=== PATIENT | female | born 1950 | race American Indian/Alaskan Native ===

== ENCOUNTER 2020-11-30 13:13 | Outpatient (CLI) | payer MEDICARE ==
[2020-11-30] MEDS ORDERED: LIDOCAINE (4%) 40 MG/ML TOPICAL SOLN 50 ML BOTTLE TP ONE (15:08)
== END 2020-11-30 13:14 | disposition home or self-care (01) ==
LOC: WOUND 13:13
PROVIDERS: ATTEND Surgery
DX: I87.311 Chronic venous hypertension (idiopathic) with ulcer of right lower extremity (principal); L97.812 Non-pressure chronic ulcer of other part of right lower leg with fat layer exposed; I10 Essential (primary) hypertension; K21.9 Gastro-esophageal reflux disease without esophagitis; M19.90 Unspecified osteoarthritis, unspecified site; M47.9 Spondylosis, unspecified; R26.9 Unspecified abnormalities of gait and mobility; F41.9 Anxiety disorder, unspecified; Z90.49 Acquired absence of other specified parts of digestive tract; Z86.718 Personal history of other venous thrombosis and embolism
CPT/HCPCS: 11042; 11045; G0463; 99205

== ENCOUNTER 2020-12-14 13:38 | Outpatient (CLI) | payer MEDICARE | END 2020-12-14 13:39 | disposition home or self-care (01) | LOC: WOUND 13:38 ==

== ENCOUNTER → 2020-12-21 | Outpatient (CLI) | payer MEDICARE | END | disposition home or self-care (01) | LOC: WOUND 12:41 | PROVIDERS: ATTEND Surgery | DX: I87.311 Chronic venous hypertension (idiopathic) with ulcer of right lower extremity (principal); L97.812 Non-pressure chronic ulcer of other part of right lower leg with fat layer exposed; I10 Essential (primary) hypertension; K21.9 Gastro-esophageal reflux disease without esophagitis; M19.90 Unspecified osteoarthritis, unspecified site; M47.9 Spondylosis, unspecified; R26.9 Unspecified abnormalities of gait and mobility; F41.9 Anxiety disorder, unspecified; Z90.49 Acquired absence of other specified parts of digestive tract; Z86.718 Personal history of other venous thrombosis and embolism ==

== ENCOUNTER 2020-12-26 09:54 | Outpatient (CLI) | payer MEDICARE ==
--- NOTE | 2020-12-26 17:34 | Vascular Lab Report ---
DUPLEX DOPPLER LOWER EXTREMITY VEINS, RIGHT INDICATION: CHRONIC VENOUS HYPERTENSION W/ RIGHT LOWER EXTREMITY-I87.311. TECHNIQUE: Duplex doppler imaging was performed through the veins of the right lower extremity using venous comp ression and other maneuvers. COMPARISON: None available. 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 Superficial Femoral vein: Negative. Popliteal vein: Negative. Calf veins: Negative. Additional findings: Mild subcutaneous edema. 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 Prominent subcutaneous edema of the right lower extremity. Signer Name: Alfredo Gutierrez MD Signed: 12/26/2020 5:30 PM Workstation Name: [id number]
== END 2020-12-26 09:55 | disposition home or self-care (01) ==
LOC: VAS 09:54
PROVIDERS: ATTEND Surgery
DX: I87.311 Chronic venous hypertension (idiopathic) with ulcer of right lower extremity (principal); M79.89 Other specified soft tissue disorders

== ENCOUNTER 2020-12-28 13:27 | Outpatient (CLI) | payer MEDICARE ==
[2020-12-28] MEDS ORDERED: LIDOCAINE (4%) 40 MG/ML TOPICAL SOLN 50 ML BOTTLE TP ONE (14:00)
== END 2020-12-28 13:28 | disposition home or self-care (01) ==
LOC: WOUND 13:27
PROVIDERS: ATTEND Surgery
DX: I87.311 Chronic venous hypertension (idiopathic) with ulcer of right lower extremity (principal); L97.812 Non-pressure chronic ulcer of other part of right lower leg with fat layer exposed; I10 Essential (primary) hypertension; K21.9 Gastro-esophageal reflux disease without esophagitis; M19.90 Unspecified osteoarthritis, unspecified site; M47.9 Spondylosis, unspecified; R26.9 Unspecified abnormalities of gait and mobility; F41.9 Anxiety disorder, unspecified; Z90.49 Acquired absence of other specified parts of digestive tract; Z86.718 Personal history of other venous thrombosis and embolism

== ENCOUNTER 2021-01-04 13:22 | Outpatient (CLI) | payer MEDICARE ==
[2021-01-04] MEDS ORDERED: LIDOCAINE (4%) 40 MG/ML TOPICAL SOLN 50 ML BOTTLE TP ONE (13:25)
[2021-01-04] MEDS ORDERED: SODIUM HYPOCHLORITE, DAKIN'S FULL STRENGTH (0.5%) 473 ML TOPICAL SOLN TP ONE (14:14)
== END 2021-01-04 13:23 | disposition home or self-care (01) ==
LOC: WOUND 13:22
PROVIDERS: ATTEND Surgery
DX: I87.311 Chronic venous hypertension (idiopathic) with ulcer of right lower extremity (principal); L97.812 Non-pressure chronic ulcer of other part of right lower leg with fat layer exposed; I10 Essential (primary) hypertension; K21.9 Gastro-esophageal reflux disease without esophagitis; M19.90 Unspecified osteoarthritis, unspecified site; M47.9 Spondylosis, unspecified; R26.9 Unspecified abnormalities of gait and mobility; F41.9 Anxiety disorder, unspecified; Z90.49 Acquired absence of other specified parts of digestive tract; Z86.718 Personal history of other venous thrombosis and embolism

== ENCOUNTER 2021-01-11 13:30 | Outpatient (CLI) | payer MEDICARE ==
[2021-01-11] MEDS ORDERED: LIDOCAINE (4%) 40 MG/ML TOPICAL SOLN 50 ML BOTTLE TP ONE (13:37)
== END 2021-01-11 13:31 | disposition home or self-care (01) ==
LOC: WOUND 13:30
PROVIDERS: ATTEND Surgery
DX: I87.311 Chronic venous hypertension (idiopathic) with ulcer of right lower extremity (principal); L97.812 Non-pressure chronic ulcer of other part of right lower leg with fat layer exposed; K21.9 Gastro-esophageal reflux disease without esophagitis; M19.90 Unspecified osteoarthritis, unspecified site; M47.9 Spondylosis, unspecified; R26.9 Unspecified abnormalities of gait and mobility; F41.9 Anxiety disorder, unspecified; Z90.49 Acquired absence of other specified parts of digestive tract; Z86.718 Personal history of other venous thrombosis and embolism

== ENCOUNTER 2021-01-18 13:41 | Outpatient (CLI) | payer MEDICARE | END 2021-01-18 13:42 | disposition home or self-care (01) | LOC: WOUND 13:41 | PROVIDERS: ATTEND Surgery | DX: I87.311 Chronic venous hypertension (idiopathic) with ulcer of right lower extremity (principal); L97.812 Non-pressure chronic ulcer of other part of right lower leg with fat layer exposed; K21.9 Gastro-esophageal reflux disease without esophagitis; M19.90 Unspecified osteoarthritis, unspecified site; M47.9 Spondylosis, unspecified; R26.9 Unspecified abnormalities of gait and mobility; F41.9 Anxiety disorder, unspecified; Z90.49 Acquired absence of other specified parts of digestive tract; Z86.718 Personal history of other venous thrombosis and embolism ==

== ENCOUNTER 2021-01-25 14:08 | Outpatient (CLI) | payer MEDICARE ==
[2021-01-25] MEDS ORDERED: LIDOCAINE (4%) 40 MG/ML TOPICAL SOLN 50 ML BOTTLE TP ONE (14:47)
[2021-01-25] MEDS ORDERED: SODIUM HYPOCHLORITE, DAKIN'S FULL STRENGTH (0.5%) 473 ML TOPICAL SOLN TP ONE (14:47)
== END 2021-01-25 14:09 | disposition home or self-care (01) ==
LOC: WOUND 14:08
PROVIDERS: ATTEND Surgery
DX: I87.311 Chronic venous hypertension (idiopathic) with ulcer of right lower extremity (principal); L97.812 Non-pressure chronic ulcer of other part of right lower leg with fat layer exposed; K21.9 Gastro-esophageal reflux disease without esophagitis; M19.90 Unspecified osteoarthritis, unspecified site; M47.9 Spondylosis, unspecified; R26.9 Unspecified abnormalities of gait and mobility; F41.9 Anxiety disorder, unspecified; Z90.49 Acquired absence of other specified parts of digestive tract; Z86.718 Personal history of other venous thrombosis and embolism

== ENCOUNTER 2021-02-01 13:46 | Outpatient (CLI) | payer MEDICARE ==
[2021-02-01] MEDS ORDERED: LIDOCAINE (4%) 40 MG/ML TOPICAL SOLN 50 ML BOTTLE TP ONE (14:46)
== END 2021-02-01 13:47 | disposition home or self-care (01) ==
LOC: WOUND 13:46
PROVIDERS: ATTEND Surgery
DX: I87.311 Chronic venous hypertension (idiopathic) with ulcer of right lower extremity (principal); L97.812 Non-pressure chronic ulcer of other part of right lower leg with fat layer exposed; K21.9 Gastro-esophageal reflux disease without esophagitis; M19.90 Unspecified osteoarthritis, unspecified site; M47.9 Spondylosis, unspecified; R26.9 Unspecified abnormalities of gait and mobility; F41.9 Anxiety disorder, unspecified; Z86.718 Personal history of other venous thrombosis and embolism; Z90.49 Acquired absence of other specified parts of digestive tract

== ENCOUNTER 2021-03-01 13:42 | Outpatient (CLI) | payer MEDICARE ==
[2021-03-01] MEDS ORDERED: LIDOCAINE (4%) 40 MG/ML TOPICAL SOLN 50 ML BOTTLE TP ONE (13:50)
[2021-03-01] MEDS ORDERED: SODIUM HYPOCHLORITE, DAKIN'S FULL STRENGTH (0.5%) 473 ML TOPICAL SOLN TP ONE (13:51)
== END 2021-03-01 13:43 | disposition home or self-care (01) ==
LOC: WOUND 13:42
PROVIDERS: ATTEND Surgery
DX: I87.311 Chronic venous hypertension (idiopathic) with ulcer of right lower extremity (principal); L97.812 Non-pressure chronic ulcer of other part of right lower leg with fat layer exposed; K21.9 Gastro-esophageal reflux disease without esophagitis; M19.90 Unspecified osteoarthritis, unspecified site; M47.9 Spondylosis, unspecified; R26.9 Unspecified abnormalities of gait and mobility; F41.9 Anxiety disorder, unspecified; Z86.718 Personal history of other venous thrombosis and embolism; Z90.49 Acquired absence of other specified parts of digestive tract

== ENCOUNTER 2021-03-08 13:34 | Outpatient (CLI) | payer MEDICARE ==
[2021-03-08] MEDS ORDERED: LIDOCAINE (4%) 40 MG/ML TOPICAL SOLN 50 ML BOTTLE TP ONE (14:38)
== END 2021-03-08 13:35 | disposition home or self-care (01) ==
LOC: WOUND 13:34
PROVIDERS: ATTEND Surgery
DX: I87.311 Chronic venous hypertension (idiopathic) with ulcer of right lower extremity (principal); L97.812 Non-pressure chronic ulcer of other part of right lower leg with fat layer exposed; K21.9 Gastro-esophageal reflux disease without esophagitis; M19.90 Unspecified osteoarthritis, unspecified site; M47.9 Spondylosis, unspecified; R26.9 Unspecified abnormalities of gait and mobility; F41.9 Anxiety disorder, unspecified; Z86.718 Personal history of other venous thrombosis and embolism; Z90.49 Acquired absence of other specified parts of digestive tract

== ENCOUNTER 2021-03-15 13:53 | Outpatient (CLI) | payer MEDICARE ==
[2021-03-15] MEDS ORDERED: LIDOCAINE (4%) 40 MG/ML TOPICAL SOLN 50 ML BOTTLE TP ONE (14:10)
== END 2021-03-15 13:54 | disposition home or self-care (01) ==
LOC: WOUND 13:53
PROVIDERS: ATTEND Surgery
DX: I87.311 Chronic venous hypertension (idiopathic) with ulcer of right lower extremity (principal); L97.812 Non-pressure chronic ulcer of other part of right lower leg with fat layer exposed; K21.9 Gastro-esophageal reflux disease without esophagitis; M19.90 Unspecified osteoarthritis, unspecified site; M47.9 Spondylosis, unspecified; R26.9 Unspecified abnormalities of gait and mobility; F41.9 Anxiety disorder, unspecified; Z86.718 Personal history of other venous thrombosis and embolism; Z90.49 Acquired absence of other specified parts of digestive tract

== ENCOUNTER 2021-03-22 13:43 | Outpatient (CLI) | payer MEDICARE ==
[2021-03-22] MEDS ORDERED: LIDOCAINE (4%) 40 MG/ML TOPICAL SOLN 50 ML BOTTLE TP ONE (14:52)
== END 2021-03-22 13:44 | disposition home or self-care (01) ==
LOC: WOUND 13:43
PROVIDERS: ATTEND Surgery
DX: I87.311 Chronic venous hypertension (idiopathic) with ulcer of right lower extremity (principal); L97.812 Non-pressure chronic ulcer of other part of right lower leg with fat layer exposed; K21.9 Gastro-esophageal reflux disease without esophagitis; M19.90 Unspecified osteoarthritis, unspecified site; M47.9 Spondylosis, unspecified; R26.9 Unspecified abnormalities of gait and mobility; F41.9 Anxiety disorder, unspecified; Z86.718 Personal history of other venous thrombosis and embolism; Z90.49 Acquired absence of other specified parts of digestive tract

== ENCOUNTER 2021-04-05 14:34 | Outpatient (CLI) | payer MEDICARE | END 2021-04-05 14:35 | disposition home or self-care (01) | LOC: WOUND 14:34 | PROVIDERS: ATTEND Surgery | DX: I87.311 Chronic venous hypertension (idiopathic) with ulcer of right lower extremity (principal); L97.812 Non-pressure chronic ulcer of other part of right lower leg with fat layer exposed; K21.9 Gastro-esophageal reflux disease without esophagitis; M19.90 Unspecified osteoarthritis, unspecified site; M47.9 Spondylosis, unspecified; R26.9 Unspecified abnormalities of gait and mobility; F41.9 Anxiety disorder, unspecified; Z86.718 Personal history of other venous thrombosis and embolism; Z90.49 Acquired absence of other specified parts of digestive tract ==

== ENCOUNTER 2021-04-19 10:59 | Outpatient (CLI) | payer MEDICARE ==
[2021-04-19] MEDS ORDERED: LIDOCAINE (4%) 40 MG/ML TOPICAL SOLN 50 ML BOTTLE TP ONE (11:48)
== END 2021-04-19 11:00 | disposition home or self-care (01) ==
LOC: WOUND 10:59
PROVIDERS: ATTEND Surgery
DX: I87.311 Chronic venous hypertension (idiopathic) with ulcer of right lower extremity (principal); L97.812 Non-pressure chronic ulcer of other part of right lower leg with fat layer exposed; K21.9 Gastro-esophageal reflux disease without esophagitis; M19.90 Unspecified osteoarthritis, unspecified site; M47.9 Spondylosis, unspecified; R26.9 Unspecified abnormalities of gait and mobility; F41.9 Anxiety disorder, unspecified; Z86.718 Personal history of other venous thrombosis and embolism; Z90.49 Acquired absence of other specified parts of digestive tract

== ENCOUNTER 2021-05-03 10:55 | Outpatient (CLI) | payer MEDICARE ==
[2021-05-03] MEDS ORDERED: LIDOCAINE (4%) 40 MG/ML TOPICAL SOLN 50 ML BOTTLE TP SCH (11:30)
== END 2021-05-03 10:56 | disposition home or self-care (01) ==
LOC: WOUND 10:55
PROVIDERS: ATTEND Surgery
DX: I87.311 Chronic venous hypertension (idiopathic) with ulcer of right lower extremity (principal); L97.812 Non-pressure chronic ulcer of other part of right lower leg with fat layer exposed; K21.9 Gastro-esophageal reflux disease without esophagitis; M19.90 Unspecified osteoarthritis, unspecified site; M47.9 Spondylosis, unspecified; R26.9 Unspecified abnormalities of gait and mobility; F41.9 Anxiety disorder, unspecified; Z86.718 Personal history of other venous thrombosis and embolism; Z90.49 Acquired absence of other specified parts of digestive tract

== ENCOUNTER 2021-05-10 11:38 | Outpatient (CLI) | payer MEDICARE ==
[2021-05-10] MEDS ORDERED: LIDOCAINE (4%) 40 MG/ML TOPICAL SOLN 50 ML BOTTLE TP ONE (11:54)
== END 2021-05-10 11:39 | disposition home or self-care (01) ==
LOC: WOUND 11:38
PROVIDERS: ATTEND Surgery
DX: I87.311 Chronic venous hypertension (idiopathic) with ulcer of right lower extremity (principal); L97.812 Non-pressure chronic ulcer of other part of right lower leg with fat layer exposed; K21.9 Gastro-esophageal reflux disease without esophagitis; M19.90 Unspecified osteoarthritis, unspecified site; J47.9 Bronchiectasis, uncomplicated; R26.9 Unspecified abnormalities of gait and mobility; F41.9 Anxiety disorder, unspecified; Z86.718 Personal history of other venous thrombosis and embolism; Z90.49 Acquired absence of other specified parts of digestive tract